=== PATIENT | male | born 1990 | race Caucasian/White ===

== ENCOUNTER 2023-04-04 00:35 | Emergency (ER) | payer OTHER ==
[2023-04-04] MEDS ORDERED: LIDOCAINE HCL 2% (20ML MULTI-DOSE VIAL) ONE (00:39)
[2023-04-04 00:42] VITALS: BMI 32.1
[2023-04-04 01:04] VITALS: BP 127/86; PULSE 90; RESP 18; TEMP 98
== END 2023-04-04 01:36 | disposition home or self-care (01) ==
LOC: JER 00:35
PROC: 0RSJXZZ Reposition Right Shoulder Joint, External Approach (ICD-10-PCS; principal; 2023-04-04)
DX: S43.004A Unspecified dislocation of right shoulder joint, initial encounter (principal); M25.511 Pain in right shoulder; W01.0XXA Fall on same level from slipping, tripping and stumbling without subsequent striking against object, initial encounter; Y93.89 Activity, other specified; Y92.9 Unspecified place or not applicable
CPT/HCPCS: 73030-TC-RT-FY; 99283-25